=== PATIENT | male | born 1995 ===

== ENCOUNTER 2017-10-10 20:30 | Emergency (ER) | payer MEDICAID, OTHER ==
[2017-10-10 20:31] VITALS: BMI 23.8
[2017-10-10 20:55] VITALS: RESP 18; O2SAT 99
[2017-10-10] MEDS ORDERED: Amoxicillin-Clav 875-125 mg Tab PO STA (21:00)
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
[2017-10-10 23:08] VITALS: BP 128/72; PULSE 65; TEMP 97.5
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
== END 2017-10-10 21:45 | disposition home or self-care (01) ==
LOC: ED 20:30
DX: S61.451A Open bite of right hand, initial encounter (principal); Y04.1XXA Assault by human bite, initial encounter; F17.210 Nicotine dependence, cigarettes, uncomplicated

== ENCOUNTER 2018-07-03 14:25 | Emergency (ER) | payer MEDICAID | END 2018-07-03 16:35 | disposition home or self-care (01) | LOC: ED 14:25 ==